=== PATIENT | male | born 1985 | race Caucasian/White ===

== ENCOUNTER 2021-09-06 11:21 | Emergency (ER) | payer OTHER ==
[2021-09-06] MEDS ORDERED: ENDOCET 5-3251 EACH PO (13:11)
== END 2021-09-06 13:21 | disposition home or self-care (01) ==
LOC: ER1 11:21
DX: S92.311A Displaced fracture of first metatarsal bone, right foot, initial encounter for closed fracture (principal); S92.321A Displaced fracture of second metatarsal bone, right foot, initial encounter for closed fracture; S92.331A Displaced fracture of third metatarsal bone, right foot, initial encounter for closed fracture; F17.210 Nicotine dependence, cigarettes, uncomplicated; Z88.0 Allergy status to penicillin; W22.8XXA Striking against or struck by other objects, initial encounter; Y92.89 Other specified places as the place of occurrence of the external cause; Y99.0 Civilian activity done for income or pay
CPT/HCPCS: 73600; 73630; 99283

== ENCOUNTER → 2021-09-11 | Outpatient (CLI) | payer OTHER ==
[~2021-09-11] MED LIST: ENDOCET 5-3251 EACH PO
== END ==
LOC: KOH-I 11:58
DX: S92.311D Displaced fracture of first metatarsal bone, right foot, subsequent encounter for fracture with routine healing (principal); S92.321D Displaced fracture of second metatarsal bone, right foot, subsequent encounter for fracture with routine healing; S92.331D Displaced fracture of third metatarsal bone, right foot, subsequent encounter for fracture with routine healing; X58.XXXD Exposure to other specified factors, subsequent encounter; M79.89 Other specified soft tissue disorders
CPT/HCPCS: 73700

== ENCOUNTER → 2021-09-16 | Outpatient (CLI) | payer OTHER | LOC: EMI 10:45 | DX: S93.491A Sprain of other ligament of right ankle, initial encounter (principal); S93.411A Sprain of calcaneofibular ligament of right ankle, initial encounter; S92.314A Nondisplaced fracture of first metatarsal bone, right foot, initial encounter for closed fracture; S92.224A Nondisplaced fracture of lateral cuneiform of right foot, initial encounter for closed fracture | CPT/HCPCS: 73721 ==

== ENCOUNTER → 2021-10-13 | Outpatient (CLI) | payer OTHER ==
[~2021-10-13] MED LIST changes: +MEGACE TAB 20 M20 MG PO; +OMEPRAZOLE40 MG PO
== END ==
LOC: KOH-I 10:05
DX: S92.321A Displaced fracture of second metatarsal bone, right foot, initial encounter for closed fracture (principal); S92.311A Displaced fracture of first metatarsal bone, right foot, initial encounter for closed fracture; S92.331A Displaced fracture of third metatarsal bone, right foot, initial encounter for closed fracture
CPT/HCPCS: 73630

== ENCOUNTER → 2021-10-20 | Outpatient (CLI) | payer OTHER | LOC: KOH-I 15:33 | DX: I82.401 Acute embolism and thrombosis of unspecified deep veins of right lower extremity (principal) | CPT/HCPCS: 93971 ==

== ENCOUNTER → 2021-10-28 | Outpatient (CLI) | payer OTHER ==
[2021-10-28 15:03] LABS: HEMOGLOBIN 14.7 gm/dl (14.0-17.5); RED BLOOD COUNT 4.72 M/UL (4.20-5.50); WHITE BLOOD COUNT 8.2 K/UL (4.5-11.0)
== END ==
LOC: LAB 13:55
PROVIDERS: Podiatrist Foot & Ankle Surgery
DX: L03.119 Cellulitis of unspecified part of limb (principal)
CPT/HCPCS: 36415; 85027; 85652; 86140

== ENCOUNTER → 2021-10-31 | Day surgery (SDC) | payer OTHER ==
[~2021-10-31] MED LIST changes: +HYDROCODON-ACE1 EAC4 PO
== END | disposition home or self-care (01) ==
LOC: OR 05:47
DX: T84.84XA Pain due to internal orthopedic prosthetic devices, implants and grafts, initial encounter (principal); K21.9 Gastro-esophageal reflux disease without esophagitis; F90.9 Attention-deficit hyperactivity disorder, unspecified type; Z88.0 Allergy status to penicillin; Z79.899 Other long term (current) drug therapy
CPT/HCPCS: 73620; 76000; 87070; 87205; J0690; J1100; J1885; J2001; J2250; J2405; J2704; J3010; J7120

== ENCOUNTER → 2021-11-10 | Outpatient (CLI) | payer OTHER | LOC: KOH-I 10:00 | DX: M79.671 Pain in right foot (principal); M89.571 Osteolysis, right ankle and foot | CPT/HCPCS: 73630 ==

== ENCOUNTER → 2021-12-25 | Outpatient (CLI) | payer OTHER | LOC: KOH-I 15:38 | DX: S92.311D Displaced fracture of first metatarsal bone, right foot, subsequent encounter for fracture with routine healing (principal) | CPT/HCPCS: 73630 ==

== ENCOUNTER → 2022-02-05 | Outpatient (CLI) | payer OTHER | LOC: KOH-I 10:49 | DX: S92.901A Unspecified fracture of right foot, initial encounter for closed fracture (principal) | CPT/HCPCS: 73630 ==

== ENCOUNTER → 2022-03-09 | Outpatient (CLI) | payer OTHER | LOC: KOH-I 15:52 | DX: S92.311D Displaced fracture of first metatarsal bone, right foot, subsequent encounter for fracture with routine healing (principal); S92.321D Displaced fracture of second metatarsal bone, right foot, subsequent encounter for fracture with routine healing; X58.XXXD Exposure to other specified factors, subsequent encounter | CPT/HCPCS: 73630 ==

== ENCOUNTER → 2022-04-20 | Outpatient (CLI) | payer OTHER | LOC: KOH-I 15:32 | DX: S92.321D Displaced fracture of second metatarsal bone, right foot, subsequent encounter for fracture with routine healing (principal) | CPT/HCPCS: 73630 ==